=== PATIENT | male | born 1950 | race Caucasian/White ===

== ENCOUNTER → 2023-12-31 | Emergency (ER) | payer OTHER ==
[~2023-12-31] VITALS: Ht 170.2 cm; Wt 81.6 kg
[~2023-12-31] MED LIST: DICL20GE TP; LIDO1ADH22 TP; SOM350 PO
[2023-12-31 13:52] VITALS: BP_SYST 169; PULSE 60; RESP 18; TEMP 98.2; O2SAT 95
[2023-12-31] MEDS: carisoprodoL 350 MG TABLET PO ONE (14:38)
[2023-12-31] MEDS: KETOROLAC TROMETHAMINE 30 MG VIAL IM ONE (14:40)
== END | disposition home or self-care (01) ==
LOC: SED 13:12
DX: S39.012A Strain of muscle, fascia and tendon of lower back, initial encounter (principal); S46.812A Strain of other muscles, fascia and tendons at shoulder and upper arm level, left arm, initial encounter; I10 Essential (primary) hypertension; V89.2XXA Person injured in unspecified motor-vehicle accident, traffic, initial encounter; Y93.89 Activity, other specified; Y92.89 Other specified places as the place of occurrence of the external cause; Y99.8 Other external cause status
CPT/HCPCS: 99284; 72100; 73030; 96372; J1885